=== PATIENT | female | born 1965 | race Caucasian/White ===

== ENCOUNTER 2017-01-14 12:30 | Outpatient (CLI) | payer OTHER ==
[2017-01-17 09:20] LABS: %Basophils 1.6 % (0.0-1.0); %Eosinophils 2.2 % (0.0-10.0); %Lymphocytes 50.7 % (21.0-51.0); %Monocytes 5.9 % (0.0-10.0); %Neutrophils 39.7 % (42.0-75.0); Hemoglobin 14.1 g/dL (12.0-16.0); Mean Corpuscular HGB CONC 31.8 g/dL (32.0-36.0); Mean Corpuscular Hemoglobin 26.6 pg (27.0-31.0); Mean Corpuscular Volume 83.8 fL (81.0-99.0); Mean Platelet Volume 6.8 fL (7.4-10.4); Platelet Count 262 thou/uL (130-400); RBC Distribution Width 12.3 % (11.5-14.5); Red Blood Cell (RBC) Count 5.29 mill/uL (4.20-5.40); White Blood Cell (WBC) Count 8.3 thou/uL (4.8-10.8)
[2017-01-17 09:21] LABS: #Basophils 0.1 thou/uL (0.0-0.2); #Eosinphils 0.2 thou/uL (0.0-0.7); #Lymphocytes 4.2 thou/uL (1.20-3.40); #Monocytes 0.5 thou/uL (0.11-0.59); #Neutrophils 3.3 thou/uL (1.40-6.50); Carbon Dioxide 25 mmol/L (22-29); Chloride 104 mmol/L (98-107); Potassium 4.7 mmol/L (3.5-5.1); Sodium 137 mmol/L (136-145)
[2017-01-17 09:22] LABS: Albumin 4.3 g/dL (3.5-5.0); Alkaline Phosphatase 70 U/L (40-150); BUN (Urea Nitrogen) 16 mg/dL (7.0-18.7); Bilirubin, Total Less than 0.3 mg/dL (0.2-1.2); Calc. Creatinine Clearance 0 mL/min (70-130); Calcium 9.4 mg/dL (7.8-10.44); Estimated GFR-MDRD 68; Globulin 2.4 g/dL (2.4-3.5); Glucose 85 mg/dL (70-105); Protein, Total 6.7 g/dL (6.0-8.3)
[2017-01-17 09:23] LABS: ALT (SGPT) 7 U/L (0-55); AST (SGOT) 14 U/L (5-34)
== END 2017-01-14 12:31 | disposition home or self-care (01) ==
LOC: MADLAB 12:30
DX: Z00.00 Encounter for general adult medical examination without abnormal findings (principal)
CPT/HCPCS: 36415; 80050; 80053; 80061; 84443; 85025

== ENCOUNTER 2018-06-01 23:22 | Emergency (ER) | payer SELFPAY ==
[2018-06-01] MEDS ORDERED: methylPREDNISolone Sod Succ/PF 125 MG/2 ML VIAL ONE (23:43)
--- NOTE | 2018-06-01 23:51 | RAD ---
PORTABLE CHEST ONE VIEW 06/01/18 at 11:26 p.m. HISTORY: Dyspnea. FINDINGS: The heart size is normal. The lungs are well expanded without focal areas of consolidation, pneumotho races or pleural effusions. IMPRESSION: No acute process. POS: [facility]
[2018-06-02 00:05] LABS: #Basophils 0.1 thou/uL (0.0-0.2); #Eosinphils 0.3 thou/uL (0.0-0.7); #Lymphocytes 2.6 thou/uL (1.20-3.40); #Monocytes 0.9 thou/uL (0.11-0.59); #Neutrophils 7.1 thou/uL (1.40-6.50); %Basophils 0.7 % (0.0-1.0); %Eosinophils 2.5 % (0.0-10.0); %Lymphocytes 23.3 % (21.0-51.0); %Monocytes 8.3 % (0.0-10.0); %Neutrophils 65.1 % (42.0-75.0); Hemoglobin 12.3 g/dL (12.0-16.0); Mean Corpuscular HGB CONC 31.5 g/dL (32.0-36.0); Mean Corpuscular Hemoglobin 25.6 pg (27.0-31.0); Mean Corpuscular Volume 81.2 fL (78.0-98.0); Mean Platelet Volume 6.2 fL (7.4-10.4); Platelet Count 270 thou/uL (130-400); Red Blood Cell (RBC) Count 4.81 mill/uL (4.20-5.40); White Blood Cell (WBC) Count 10.9 thou/uL (4.8-10.8)
[2018-06-02] MEDS ORDERED: Lorazepam 2 MG/ML VIAL ONE (00:21)
[2018-06-02 00:22] LABS: ALT (SGPT) 15 U/L (8-55); AST (SGOT) 17 U/L (5-34); Alkaline Phosphatase 86 U/L (40-150); Anion Gap 15 mmol/L (10-20); BUN (Urea Nitrogen) 11 mg/dL (9.8-20.1); Bilirubin, Total Less than 0.2 mg/dL (0.2-1.2); Calc. Creatinine Clearance 0 mL/min (70-130); Carbon Dioxide 23 mmol/L (22-29); Chloride 111 mmol/L (98-107); Estimated GFR-MDRD 64; Globulin 2.5 g/dL (2.4-3.5); Glucose 137 mg/dL (70-105); Potassium 4.1 mmol/L (3.5-5.1); Protein, Total 6.5 g/dL (6.0-8.3); Sodium 145 mmol/L (136-145)
[2018-06-02] MEDS ORDERED: Azithromycin 250 MG TAB ONE (00:34)
[2018-06-02] MEDS ORDERED: Albuterol Sulfate 2.5 mg/0.5 ml Neb ONE (00:35)
== END 2018-06-02 01:26 | disposition short-term general hospital (02) ==
LOC: MADERS 23:22
DX: J44.9 Chronic obstructive pulmonary disease, unspecified (principal); F17.210 Nicotine dependence, cigarettes, uncomplicated; F32.9 Major depressive disorder, single episode, unspecified
CPT/HCPCS: 71045; 80053; 83880; 84484; 85025; 93005; 96374; 96375; J2060; J2930; J7611; J7620

== ENCOUNTER 2018-07-12 16:18 | Emergency (ER) | payer SELFPAY ==
[~2018-07-12 16:18] MED LIST: Iopamidol 370 76% 125 ML VIAL FS ONE; Naloxone HCl 2 mg/2 ml Syringe ONE; Sodium Chloride 0.9% 1,000 ML BAG ONE; Succinylcholine Chloride 20 MG/ML 10 ml SYRINGE FS ONE
[2018-07-12] MEDS ORDERED: Naloxone HCl 2 mg/2 ml Syringe ONE (16:44)
[2018-07-12 16:49] LABS: #Basophils 0.1 thou/uL (0.0-0.2); #Eosinphils 0.1 thou/uL (0.0-0.7); #Lymphocytes 3.5 thou/uL (1.20-3.40); #Monocytes 0.9 thou/uL (0.11-0.59); #Neutrophils 6.1 thou/uL (1.40-6.50); %Basophils 1.2 % (0.0-1.0); %Eosinophils 1.1 % (0.0-10.0); %Lymphocytes 32.2 % (21.0-51.0); %Monocytes 8.7 % (0.0-10.0); %Neutrophils 56.8 % (42.0-75.0); Hemoglobin 14.4 g/dL (12.0-16.0); Mean Corpuscular HGB CONC 30.9 g/dL (32.0-36.0); Mean Corpuscular Hemoglobin 25.9 pg (27.0-31.0); Mean Corpuscular Volume 83.9 fL (78.0-98.0); Mean Platelet Volume 7.1 fL (7.4-10.4); Platelet Count 349 thou/uL (130-400); RBC Distribution Width 13.5 % (11.5-14.5); Red Blood Cell (RBC) Count 5.54 mill/uL (4.20-5.40); White Blood Cell (WBC) Count 10.7 thou/uL (4.8-10.8)
[2018-07-12 16:53] LABS: INR-International Normal Ratio 0.9; PTT 24.7 SEC (22.9-36.1); Prothrombin Time 12.7 SEC (12.0-14.7)
[2018-07-12 16:59] LABS: Bilirubin Negative (Negative); Blood, Urine Trace (Negative); Clarity Clear (Clear); Glucose, Urine (Dipstick) Negative (Negative); Leukocyte Negative (Negative); Nitrite Negative (Negative); Protein, Urine (Dipstick) Negative (Neg-Trace); Urobilinogen 0.2 mg/dL (0.2-1.0)
[2018-07-12 17:00] LABS: Pregnancy Test - Urine (BHCG) Negative (Negative); Pregu Control Background? CLEAR/WHITE (CLR/WHITE); Pregu Control Bar Appear? YES (CONTROL BAR)
[2018-07-12 17:08] LABS: ALT (SGPT) 12 U/L (8-55); AST (SGOT) 14 U/L (5-34); Acetaminophen Less than 6.0 mcg/mL (10.0-30.0); Albumin 4.2 g/dL (3.5-5.0); Alcohol Less than 10 mg/dL (Less than 10); Alkaline Phosphatase 115 U/L (40-150); Anion Gap 13 mmol/L (10-20); BUN (Urea Nitrogen) 11 mg/dL (9.8-20.1); Bilirubin, Total 0.3 mg/dL (0.2-1.2); Calc. Creatinine Clearance 0 mL/min (70-130); Calcium 9.8 mg/dL (7.8-10.44); Carbon Dioxide 25 mmol/L (22-29); Chloride 109 mmol/L (98-107); Estimated GFR-MDRD 72; Globulin 2.6 g/dL (2.4-3.5); Glucose 91 mg/dL (70-105); Potassium 4.6 mmol/L (3.5-5.1); Protein, Total 6.8 g/dL (6.0-8.3); Salicylate Less than 8.0 mg/dL (15.0-30.0); Sodium 142 mmol/L (136-145)
[2018-07-12 17:10] LABS: CKMB 1.1 ng/mL (0-6.6); Troponin I Less than 0.010 ng/mL (< 0.028)
[2018-07-12 17:17] LABS: Amphetamine Not Detected (NotDetected); Barbiturates Screen Not Detected (NotDetected); Benzodiazepine Screen Detected (NotDetected); Cocaine Metabolite Screen Not Detected (NotDetected); Medtox Control Line Valid? VALID (VALID); Methadone Not Detected (NotDetected); Methamphetamine Not Detected (NotDetected); Opiate Screen Not Detected (NotDetected); Oxycodone Screen Not Detected (NotDetected); Phencyclidine (PCP) Not Detected (NotDetected); THC/Cannabinoid Screen Not Detected (NotDetected); Tricyclic Screen Not Detected (NotDetected)
[2018-07-12 17:31] LABS: Bacteria/HPF Rare-Few HPF (None Seen); RBC/HPF 0-3 HPF (0-3); WBC/HPF 0-3 HPF (0-3)
[2018-07-12 17:57] LABS: BHCG - Serum POSITIVE (NEGATIVE); Pregs Control Background? CLEAR/WHITE (CLR/WHITE); Pregs Control Bar Appear? YES (CONTROL BAR)
[2018-07-12] MEDS ORDERED: Albuterol Sulfate 2.5 mg/0.5 ml Neb ONE (18:18)
[2018-07-12] MEDS ORDERED: methylPREDNISolone Sod Succ/PF 125 MG/2 ML VIAL ONE (18:18)
--- NOTE | 2018-07-12 18:31 | RAD ---
SINGLE VIEW OF THE CHEST: 07/12/18 COMPARISON: 06/01/18 HISTORY: Altered mental status. FINDINGS: Single view of the chest shows a normal sized cardiomediastinal silhouette. There is no evidence of c onsolidation, mass, or pleural effusion. The bones are unremarkable. IMPRESSION: No evidence of acute cardiopulmonary disease. POS: [facility]
[2018-07-12] MEDS ORDERED: Midazolam HCl 10 mg/2 ml Vial ONE (18:46)
[2018-07-12] MEDS ORDERED: Fentanyl 100 MCG/2 ML VIAL ONE (18:48)
--- NOTE | 2018-07-12 19:31 | RAD ---
SINGLE VIEW OF THE CHEST: 07/12/18 COMPARISON: 07/12/18 at 6 p.m. HISTORY: Line placement. Altered mental status and stroke. FINDINGS: Single view of the chest shows a normal sized cardiomediastinal silhouette. There is an endotracheal tube at the lower border of the clavicles. There is no evidence of consolidation, mass, or pleural ef fusion. IMPRESSION: Appropriate position of endotracheal tube. POS: [facility]
--- NOTE | 2018-07-13 07:42 | CT ---
NONCONTRAST HEAD CT CT ANGIOGRAM OF THE HEAD CT ANGIOGRAM OF THE NECK 07/12/18 HISTORY: Altered mental status. Evaluate for stroke. COMPARISON: None. TECHNIQUE: CT angiogram of the head and neck are performed in the axial plane. Three dimensional reformatted naomi ges are submitted for interpretation. Noncontrast head CT is also performed in the axial plane. FINDINGS: NONCONTRAST HEAD CT: Limited evaluation by motion degradation. No definite parenchymal hemorrhage. No definite extra-axial hematoma. No midline shift. Basilar cisterns appear to be patent. Brain volume is age appropriate. C ortical church-white matter differentiation is preserved. Ventricles and sulci are patent and symmetric. Postcontrast head CT does not demonstrate any patholog ic enhancement of the brain parenchyma. Bilateral ocular lenses are appropriately located. Both globes are intact. Retrobulbar fat is preserv ed. Symmetric attenuation of the optic nerves and ocular rectus muscles. Mildly prominent bilateral ophthalmic veins are noted. Significance is uncertain. The left and right Meckel's cave appear to be unremarkable. No obvious evidence of cavernous sinus thrombosis on this ex am. Aerodigestive tract appears to be grossly patent. No obvious mucosal abnormality. Evaluation of t he oral cavity is limited by dental amalgam artifact. Epiglottis has a normal caliber. Pre-epiglottic fat is preserved. Larynx is unremarkable. There is symmetric attenuation of the parotid and submandibular glands. Symmetric attenuation of the sternocleidomastoid muscles. No evidence of lymphadenopathy by size criteria. Upper mediastinum is unremarkable. Extensive emphyse matous changes in the lung parenchyma. Central spinal canal and neural foramina are patent. No evidence of high grade central canal stenosis . There is multilevel significant foraminal narrowing on the basis of degenerative change. Axial bone algorithm of the cervical spine is submitted for interpretation. Based on the axial bone algorithm i mages, cervical spine fracture is not appreciated. The sagittal and coronal three dimensional reforma tted images are also utilized. Evaluation on these images is limited by technique and motion. There i s straightening of the normal cervical lordosis which is presumed to be due to patient position, musc le spasm or cervical collar. Mild degenerative disease at C4-C5 and C5-C6. CT ANGIOGRAM: The visualized aortic arch is unremarkable. Evaluation of the great vessels of the neck is limited by motion degradation. RIGHT CAROTID: The origin of the right carotid artery, carotid bifurcation, and internal carotid artery appear to be grossly unremarkable. LEFT CAROTID: The origin of the left carotid artery appears to be unremarkable. There is appropriate enhancement an d luminal diameter of the visualized common carotid artery, carotid bifurcation, and internal carotid artery. Both subclavian arteries are unremarkable. The cervical vertebral arteries are patent throughout thei r course in the neck and appear to be essentially codominant. CT ANGIOGRAM OF THE HEAD: Intracranial internal carotid arteries as well as the anterior circulation appear to be unremarkable. Symmetric enhancement and luminal diameter of the A1 and M1 segments. Proximal A2 segments and proxi mal MCA branches are essentially symmetric. POSTERIOR CIRCULATION: Both PICA artery origins are limited in evaluation but appear to be unremarkable. Both vertebral nam anabela supply a normal appearing basilar artery. The left and right P1 segments appear to have symmetri c enhancement and luminal diameter. IMPRESSION: 1. Limited evaluation of the great vessels of the neck and head due to motion. Nevertheless, no evidence of significant stenosis of the cervical carotid arteries based upon NASCET criteria. 2. Unremarkable CT angiogram of the head with limitations taken into consideration. 3. Prominent bilateral ophthalmic veins which is of uncertain significance. Correlate clinically for possible cavernous sinus carotid fistula. Consider conventional angiography for better temporal resolution. Nonemergent neurosurgical consultation may be beneficial. 4. Extensive emphysematous changes in the visualized lung parenchyma. 5. Suboptimal and limited evaluation of the cervical spine. Based upon the images provided, ther e is no evidence of a cervical spine fracture. Current study is not tailored for ligamentous injury. POS: [facility]
[2018-07-13 08:51] LABS: Bicarbonate (HCO3v) 27.5 mmol/L (1.0-85.0); O2 Tension (PvO2) 225.7 mmHg (35.0-45.0)
[2018-07-13 08:52] LABS: Base Excess-Venous -0.8 mmol/L (0 (+/- 2.5)); Hemoglobin - Calc 15.6 g/dL (12.0-18.0); Potassium 4.6 mmol/L (3.4-4.7); T. Carbon Dioxide 29.3 mmol/L (1.0-85.0); vO2 Saturation-calc 99.7 % (94-98)
[2018-07-13 08:55] LABS: pH (Venous) 7.276 (7.35-7.45)
== END 2018-07-12 19:15 | disposition short-term general hospital (02) ==
LOC: MADERS 16:18
DX: J44.9 Chronic obstructive pulmonary disease, unspecified (principal); R41.82 Altered mental status, unspecified; F17.210 Nicotine dependence, cigarettes, uncomplicated
CPT/HCPCS: 31500; 36415; 51701; 70496; 70498; 71045; 80053; 80306; 80307; 81003; 81015; 81025; 82330; 82553; 82803; 84443; 84484; 84702; 84703; 85025; 85610; 85730; 93005; 94644; 94660; 94760; 96361; 96374; 96375; A4353; J2250; J2310; J2930; J3010; J7050; J7611; J7620